=== PATIENT | female | born 1960 | race Two or more races ===

== ENCOUNTER 2017-08-12 07:50 | Outpatient (CLI) | payer OTHER | END 2017-08-12 07:59 | disposition home or self-care (01) | LOC: MAMO-SONO 07:50 | DX: N60.11 Diffuse cystic mastopathy of right breast (principal); N60.12 Diffuse cystic mastopathy of left breast; Z12.31 Encounter for screening mammogram for malignant neoplasm of breast ==

== ENCOUNTER 2017-08-20 09:31 | Outpatient (CLI) | payer OTHER | END 2017-08-20 16:21 | disposition home or self-care (01) | LOC: MAMO-SONO 09:31 | DX: R92.2 Inconclusive mammogram (principal); R92.8 Other abnormal and inconclusive findings on diagnostic imaging of breast ==

== ENCOUNTER 2018-07-06 08:13 | Outpatient (CLI) | payer OTHER | END 2018-07-06 08:25 | disposition home or self-care (01) | LOC: RAD 08:13 | DX: M79.672 Pain in left foot (principal); M79.671 Pain in right foot; M25.572 Pain in left ankle and joints of left foot; M25.571 Pain in right ankle and joints of right foot; M25.562 Pain in left knee; M25.561 Pain in right knee ==

== ENCOUNTER → 2018-12-01 | Outpatient (CLI) | payer OTHER | END | disposition home or self-care (01) | LOC: RAD 15:49 | DX: M54.2 Cervicalgia (principal) ==

== ENCOUNTER 2019-11-25 10:14 | Outpatient (CLI) | payer OTHER | END 2019-11-25 10:25 | disposition home or self-care (01) | LOC: LAB 10:14 | PROVIDERS: ATTEND General Practice | DX: I10 Essential (primary) hypertension (principal); Z00.8 Encounter for other general examination; Z13.6 Encounter for screening for cardiovascular disorders ==

== ENCOUNTER 2021-01-03 12:57 | Outpatient (CLI) | payer OTHER | END 2021-01-03 13:13 | disposition home or self-care (01) | LOC: MAMO-SONO 12:57 | PROVIDERS: ATTEND Specialist | DX: N64.59 Other signs and symptoms in breast (principal); Z12.31 Encounter for screening mammogram for malignant neoplasm of breast; S49.92XA Unspecified injury of left shoulder and upper arm, initial encounter ==

== ENCOUNTER 2022-01-29 07:48 | Outpatient (CLI) | payer OTHER | END 2022-01-29 07:56 | disposition home or self-care (01) | LOC: MAMO-SONO 07:48 | PROVIDERS: ATTEND Specialist | DX: Z12.31 Encounter for screening mammogram for malignant neoplasm of breast (principal); N63.10 Unspecified lump in the right breast, unspecified quadrant ==

== ENCOUNTER 2022-04-24 08:29 | Outpatient (CLI) | payer OTHER | END 2022-04-24 08:52 | disposition home or self-care (01) | LOC: SONOGRAMA 08:29 | PROVIDERS: ATTEND Internal Medicine Rheumatology | DX: M65.812 Other synovitis and tenosynovitis, left shoulder (principal) ==

== ENCOUNTER 2023-12-01 10:34 | Outpatient (CLI) | payer OTHER | END 2023-12-01 10:41 | disposition home or self-care (01) | LOC: SONOGRAMA 10:34 | DX: M65.812 Other synovitis and tenosynovitis, left shoulder (principal) ==

== ENCOUNTER 2024-02-25 08:31 | Outpatient (CLI) | payer OTHER | END 2024-02-25 08:47 | disposition home or self-care (01) | LOC: MAMO-SONO 08:31 | DX: R10.2 Pelvic and perineal pain (principal); R10.13 Epigastric pain; Z12.31 Encounter for screening mammogram for malignant neoplasm of breast; N60.11 Diffuse cystic mastopathy of right breast; N60.12 Diffuse cystic mastopathy of left breast; N64.4 Mastodynia ==

== ENCOUNTER 2024-07-19 07:48 | Outpatient (CLI) | payer OTHER | END 2024-07-19 08:02 | disposition home or self-care (01) | LOC: RAD 07:48 | PROVIDERS: ATTEND Internal Medicine Rheumatology | DX: M17.11 Unilateral primary osteoarthritis, right knee (principal); M17.12 Unilateral primary osteoarthritis, left knee ==

== ENCOUNTER 2025-03-15 10:56 | Outpatient (CLI) | payer OTHER | END 2025-03-15 11:02 | disposition home or self-care (01) | LOC: MAMO-SONO 10:56 | PROVIDERS: ATTEND Obstetrics & Gynecology | DX: N60.11 Diffuse cystic mastopathy of right breast (principal); N60.12 Diffuse cystic mastopathy of left breast; N64.4 Mastodynia; Z12.31 Encounter for screening mammogram for malignant neoplasm of breast ==